=== PATIENT | female | born 1990 | race Caucasian/White ===

== ENCOUNTER 2016-06-06 23:29 | Emergency (ER) | payer MEDICARE, MEDICAID ==
[2016-06-06 23:36] VITALS: BP 117/78
[2016-06-07 00:55] LABS: APPEARANCE,URINE CLEAR; BILIRUBIN,URINE NEGATIVE (NEGATIVE); GLUCOSE, URINE NEGATIVE (NEGATIVE); KETONES,URINE NEGATIVE (NEGATIVE); LEUKOCYTE ESTERASE,URINE NEGATIVE (NEGATIVE); NITRITE,URINE NEGATIVE (NEGATIVE); PROTEIN,URINE NEGATIVE (NEGATIVE); URINE SPECIFIC GRAVITY 1.015; UROBILINOGEN,URINE NEGATIVE mg/dL (<2.0)
[2016-06-07] MEDS ORDERED: HYDROCODONE/ACETAMINOPHEN 5-325 MG 6 TAB/DSPK PO PRN (01:58)
--- NOTE | 2016-06-07 02:01 | ER Document Report ---
HPI - HPI Patient complains to provider of: lower back pain Pain Level: 4 Context: Patient is a 25-year-old female that comes emergency department for chief complaint of lower back pain, worse since yesterday, pain is in the sides of her back on either side of her spine, she denies radiation of the pain, numbness , injury, bowel incontinence or urinary retention. She denies fever. She states that she has had intermittent problems with lower back pain for a "long time". She states she has had sciatica in the past as well. She denies any daily medications other than [id number] medications which she states are not working. - REPRODUCTIVE Reproductive: DENIES: : - DERM Skin Color: Normal Past Medical History - General Information source: Patient - Social History Smoking Status: Never Smoker Chew tobacco use (# tins/day): No Frequency of alcohol use: None Drug Abuse: None Lives with: Family Family History: Arthritis, Hypertension, Malignancy Patient has suicidal ideation: No Patient has homicidal ideation: No - Past Medical History Cardiac Medical History: Denies: Hx Heart Attack, Hx Hypertension Pulmonary Medical History: Denies: Hx Asthma, Hx Bronchitis, Hx COPD, Hx Pneumonia Neurological Medical History: Denies: Hx Migraine, Hx Seizures Endocrine Medical History: Denies: Hx Diabetes Mellitus Type 2 Renal/ Medical History: Reports: Hx Kidney Stones. Denies: Hx Ectopic , Hx End Stage Renal Disease, Hx Hemodialysis, Hx Hydrocele, Hx Peritoneal Dialysis, Hx Pelvic Inflammatory Disease Malignancy Medical History: Denies: Hx Brain Cancer, Hx Breast Cancer, Hx Liver Cancer, Hx Lung Cancer, Hx Ovarian Cancer, Hx Renal (Kidney) Cancer GI Medical History: Denies: Hx Crohn's Disease, Hx Diverticulitis, Hx Gastritis , Hx Gastroesophageal Reflux Disease Musculoskeltal Medical History: Denies Hx Arthritis, Denies Hx Gout, Denies Hx Multiple Sclerosis, Denies Hx Muscular Dystrophy, Denies Hx Musculoskeletal Deformity Psychiatric Medical History: Reports: Hx Anxiety, Hx Depression - anxiety Denies: Hx Personality Disorder, Hx Post Traumatic Stress Disorder Past Surgical History: Reports: Hx Cholecystectomy, Hx Tubal Ligation - Immunizations Immunizations up to date: Yes Hx Diphtheria, Pertussis, Tetanus Vaccination: Yes - 01/2010 Vertical Provider Document - CONSTITUTIONAL General Appearance: WD/WN, No Apparent Distress - INFECTION CONTROL TRAVEL OUTSIDE OF THE [place] IN LAST 30 DAYS: No - HEENT HEENT: Atraumatic, Normal ENT Exam, Normocephalic - NECK Neck: Normal Inspection - RESPIRATORY Respiratory: Breath Sounds Normal, No Respiratory Distress O2 Sat by Pulse Oximetry: 98 - CARDIOVASCULAR Cardiovascular: Regular Rate, Regular Rhythm - GI/ABDOMEN Gastrointestinal: Abdomen Soft, Abdomen Non-Tender - BACK Back: negative: Normal Inspection - There is tenderness in the left lumbar paraspinal muscles on examination, no midline tenderness, no saddle anesthesia, normal upper and lower extremity range of motion, strength, and distal neurovascular exam - MUSCULOSKELETAL/EXTREMETIES Musculoskeletal/Extremeties: MAEW, FROM, Non-Tender - NEURO Level of Consciousness: Awake, Alert, Appropriate Motor/Sensory: No Motor Deficit, No Sensory Deficit - DERM Integumentary: Warm, Dry, No Rash Course - Re-evaluation Re-evalutation: Patient is actually very well-appearing, sitting easily in the bed, easily gets up and walks around, negative straight leg raise, no axial loading abnormalities , no neurological deficits on exam or reported. Mild muscle tenderness in the left lower lumbar paraspinal muscles, urinalysis is unremarkable, treating with muscle relaxers, discussed primary care follow-up and return precautions, patient states understanding and agreement. - Vital Signs Vital signs: Temp Pulse Resp BP Pulse Ox 97.5 F 88 16 117/78 98 06/06/16 23:33 06/06/16 23:33 06/06/16 23:33 06/06/16 23:33 06/06/16 23:33 - Laboratory Laboratory results interpreted by me: 06/07/16 00:04 Urine Blood SMALL H Discharge - Discharge Clinical Impression: Lower back pain Qualifiers: Chronicity: chronic Back pain laterality: bilateral Sciatica presence: without sciatica Qualified Code(s): M54.5 - Low back pain Condition: Stable Disposition: HOME, SELF-CARE Additional Instructions: By examination the source of your back pain appears to be muscular tightness and spasm. Take the muscle relaxer as directed, continue Tylenol or ibuprofen. Apply heat to the area, massage may help. Follow-up with primary care. Return to the emergency department for any concerning symptoms. Prescriptions: Cyclobenzaprine HCl [Flexeril 5 mg Tablet] 1 - 2 tab PO TID PRN #20 tablet PRN Reason:
== END 2016-06-07 02:30 | disposition home or self-care (01) ==
LOC: ER 23:29
DX: M54.5 Low back pain (principal); Z87.442 Personal history of urinary calculi
CPT/HCPCS: 99283; 81001; A9270

== ENCOUNTER 2016-09-06 07:11 | Emergency (ER) | payer MEDICARE, MEDICAID ==
[2016-09-06 07:25] VITALS: BP 112/85
--- NOTE | 2016-09-06 08:13 | ER Document Report ---
HPI - HPI Patient complains to provider of: back pain Context: Patient is a 25-year-old female who presents emergency department complaining of chronic back pain. Patient states that she has had issues with back pain for the past year and a half but she states it has been worse over the past 30 days. Patient states that she recently left her previous physician because her pain is not being appropriately managed. She now sees suite. Patient states that she has had an MRI to evaluate her back before but has never been diagnosed with any degenerative disc disease, impingement on the nerve, degenerative disease. Patient states in the past that she has taken naproxen, Motrin, Mobic, Toradol. She states that none of these medications never worked for her and she will not be sent home with them today. Patient states that currently from [place] states she has been taking Flexeril 5 mg tablets without any improvement in her symptoms. She states that she is occasionally been taking her mother's Vicodin which she states does help and she is able to sleep. Patient states that this is medication she will go home today. Denies any urinary/stool incontinence, saddle anesthesia. Patient able to ambulate. Past medical history significant for anxiety - REPRODUCTIVE Reproductive: DENIES: : Past Medical History - Social History Smoking Status: Current Every Day Smoker Family History: Arthritis, Hypertension, Malignancy - Past Medical History Cardiac Medical History: Denies: Hx Heart Attack, Hx Hypertension Pulmonary Medical History: Denies: Hx Asthma, Hx Bronchitis, Hx COPD, Hx Pneumonia Neurological Medical History: Denies: Hx Migraine, Hx Seizures Endocrine Medical History: Denies: Hx Diabetes Mellitus Type 2 Renal/ Medical History: Reports: Hx Kidney Stones. Denies: Hx Ectopic , Hx End Stage Renal Disease, Hx Hemodialysis, Hx Hydrocele, Hx Peritoneal Dialysis, Hx Pelvic Inflammatory Disease Malignancy Medical History: Denies: Hx Brain Cancer, Hx Breast Cancer, Hx Liver Cancer, Hx Lung Cancer, Hx Ovarian Cancer, Hx Renal (Kidney) Cancer GI Medical History: Denies: Hx Crohn's Disease, Hx Diverticulitis, Hx Gastritis , Hx Gastroesophageal Reflux Disease Musculoskeltal Medical History: Denies Hx Arthritis, Denies Hx Gout, Denies Hx Multiple Sclerosis, Denies Hx Muscular Dystrophy, Denies Hx Musculoskeletal Deformity Psychiatric Medical History: Reports: Hx Anxiety, Hx Depression - anxiety Denies: Hx Personality Disorder, Hx Post Traumatic Stress Disorder Past Surgical History: Reports: Hx Cholecystectomy, Hx Tubal Ligation - Immunizations Immunizations up to date: Yes Hx Diphtheria, Pertussis, Tetanus Vaccination: Yes - 01/2010 Vertical Provider Document - CONSTITUTIONAL Agree With Documented VS: Yes Exam Limitations: No Limitations General Appearance: WD/WN, No Apparent Distress Notes: PHYSICAL EXAM GENERAL: Alert, interacts well. HEAD: Normocephalic, atraumatic. LUNGS: Clear to auscultation bilaterally, no wheezes, rales, or rhonchi. No respiratory distress. HEART: Regular rate and rhythm. No murmurs, gallops, or rubs. EXTREMITIES: Moves all 4 extremities spontaneously. No edema, radial and dorsalis pedis pulses 2/4 bilaterally. No cyanosis. BACK: paraspinal muscle tenderness and muscle tension along thoracic and lumber spine worse on the right. No evidence of spinous process tenderness, deformities , step offs, ecchymosis. Gait stable. Sensation and motor function intact, no evidence of numbness, weakness of b/l lower extremities NEUROLOGICAL: Alert and oriented x4. Normal speech. PSYCH: Normal affect, normal mood. SKIN: Warm, dry, normal turgor. No rashes or lesions noted. - INFECTION CONTROL TRAVEL OUTSIDE OF THE [place] IN LAST 30 DAYS: No - RESPIRATORY O2 Sat by Pulse Oximetry: 100 Course - Re-evaluation Re-evalutation: 09/06/16 10:54 The patient presents with low back pain without signs of spinal cord compression , cauda equina syndrome, infection, aneurysm, or other serious etiology. The patient is neurologically intact. Given the extremely low risk of these diagnoses further testing and evaluation for these possibilities does not appear to be indicated at this time. The patient has been instructed to return if the symptoms worsen or change in any way. Discussed with patient the department policy on chronic pain. With her that she will need to follow-up with her primary care physician regarding chronic narcotic prescriptions. Patient expresses understanding Per [facility] protocol and guidelines, this case was discussed with supervising physician Dr. Jolie Moreira prior to discharge - Vital Signs Vital signs: Temp Pulse Resp BP Pulse Ox 98.1 F 101 H 14 112/85 100 09/06/16 07:24 09/06/16 07:24 09/06/16 07:24 09/06/16 07:24 09/06/16 07:24 Discharge - Discharge Clinical Impression: Low back pain Condition: Good Disposition: HOME, SELF-CARE Additional Instructions: LOW BACK PAIN: Three out of every four people will have an episode of disabling back pain during their lifetime. Most commonly the pain is due to straining of the muscles and ligaments in the low back. Usual treatment includes: (1) Rest on a firm surface. Avoid lying on your stomach. (2) Ice pack the painful area. After a few days, gentle heat may be used intermittently to relax the area, or ice packs can be continued. (3) Medication may be needed -- muscle relaxers and antiinflammatory medicines are commonly used. (4) As the back improves, exercises are prescribed to strengthen the back and abdominal muscles. Your doctor will advise you on the proper care for your back at each stage in your recovery. You may be better in a few days -- or healing may take several weeks. If new symptoms of a "herniated disc" (radiation of pain, numbness, or tingling down the back of the leg or weakness in the leg) occur, you should be re-examined. Further testing may be necessary. ICE PACKS: Apply ice packs frequently against the painful area. Many different schedules are recommended, such as "20 minutes on, 20 minutes off" or "one hour ice, two hours rest." If you need to work, you may need to go longer between ice treatments. You should plan to have the area ice packed AT LEAST one fourth of the time. The ice should be applied over the wrap, tape, or splint, or over a layer of cloth -- not directly against the skin. Some ice bags have a built-in cloth and can be put directly on the skin. WARM PACKS: After approximately two days, apply gentle heat (such as a heating pad or hot water bottle) for about 20 to 30 minutes about every two hours -- at least four times daily. Warmth and elevation will help you make a more rapid recovery , and will ease the pain considerably. Do not use HOT heat, and never apply heat for longer than 30 minutes. The continuous heat can invisibly damage skin and muscles -- even when no burn is seen on the surface. Damaged muscles can make you MORE sore. FOLLOW-UP CARE: If you have been referred to a physician for follow-up care, call the physician s office for an appointment as you were instructed or within the next two days. If you experience worsening or a significant change in your symptoms, notify the physician immediately or return to the Emergency Department at any time for re-evaluation. Forms: Return to Work Referrals: RASHAD BERNAL PA-C [NO LOCAL MD] - Follow up tomorrow
== END 2016-09-06 08:21 | disposition home or self-care (01) ==
LOC: ER 07:11
DX: M54.5 Low back pain (principal); M54.9 Dorsalgia, unspecified; G89.29 Other chronic pain; Z79.899 Other long term (current) drug therapy; F17.200 Nicotine dependence, unspecified, uncomplicated
CPT/HCPCS: 99283

== ENCOUNTER → 2018-01-13 | Outpatient (CLI) | payer MEDICARE, MEDICAID ==
[2018-01-13 13:17] LABS: T.VAGINALIS (WET MOUNT) NO TRICHOMONAS SEEN; WBCS (WET MOUNT) 1+ WBCS SEEN; YEAST (WET MOUNT) NO YEAST SEEN
[2018-01-13 13:18] LABS: BACTERIA (WET MOUNT) 4+ BACTERIA SEEN; EPITHELIALS (WET MOUNT) 4+ EPITHELIALS SEEN; RBCS (WET MOUNT) RARE RBCS SEEN
[2018-01-13 14:50] LABS: CHLAM PCR NOT DETECTED (NOT DETECT); GON PCR NOT DETECTED (NOT DETECT)
== END ==
LOC: LAB 13:03
PROVIDERS: ATTEND Nurse Practitioner Family
DX: N76.0 Acute vaginitis (principal); R30.0 Dysuria
CPT/HCPCS: 87086; 87210; 87491; 87591

== ENCOUNTER 2018-02-19 20:33 | Emergency (ER) | payer MEDICARE, MEDICAID ==
--- NOTE | 2018-02-19 21:09 | EKG REPORT ---
SEVERITY:- NORMAL ECG - SINUS RHYTHM : Confirmed by: Kelechi Arechiga MD 19-Feb-2018 21:08:53
[2018-02-19 21:59] LABS: HEMOGLOBIN 12.7 g/dL (12.0-15.5); MEAN CORPUSCULAR HEMOGLOBIN 29.5 pg (27.0-33.4); MEAN CORPUSCULAR HGB CONC 34.4 g/dL (32.0-36.0); MEAN CORPUSCULAR VOLUME 86 fl (80-97); PLATELET COUNT 315 10^3/uL (150-450); RED BLOOD COUNT 4.31 10^6/uL (3.72-5.28); RED CELL DISTRIBUTION WIDTH 13.2 % (11.5-14.0); WHITE BLOOD COUNT 8.3 10^3/uL (4.0-10.5)
--- NOTE | 2018-02-19 22:15 | RADIOLOGY REPORT (SQ) ---
EXAM DESCRIPTION: XR CHEST 1 VIEW COMPLETED DATE/TME: 02/19/2018 21:46 CLINICAL HISTORY: 27 years, Female, cp Findings: Heart is not enlarged. Lungs are clear. No pneumothorax. No pleural effusion. IMPRESSION: No acute disease.
[2018-02-19 22:18] LABS: ANION GAP 11 (5-19); BLOOD UREA NITROGEN 9 mg/dL (7-20); CALCIUM 9.2 mg/dL (8.4-10.2); CARBON DIOXIDE 28 mmol/L (22-30); CHLORIDE 101 mmol/L (98-107); GLUCOSE 93 mg/dL (75-110); POTASSIUM 4.1 mmol/L (3.6-5.0)
[2018-02-19 22:37] LABS: APPEARANCE,URINE SLIGHTLY-CLOUDY; BILIRUBIN,URINE NEGATIVE (NEGATIVE); COLOR,URINE AMBER; GLUCOSE, URINE NEGATIVE (NEGATIVE); KETONES,URINE NEGATIVE (NEGATIVE); LEUKOCYTE ESTERASE,URINE NEGATIVE (NEGATIVE); NITRITE,URINE POSITIVE (NEGATIVE); PROTEIN,URINE 100 mg/dL (NEGATIVE); URINE SPECIFIC GRAVITY 1.025
[2018-02-19] MEDS ORDERED: CEPHALEXIN 500 MG CAPSULE PO ONE (23:20)
--- NOTE | 2018-02-19 23:20 | ER Document Report ---
ED General - General Chief Complaint: Chest Pain Stated Complaint: SWOLLEN LEGS/FEET Time Seen by Provider: 02/19/18 21:45 Notes: Patient is a 27-year-old female with a past medical history of Suboxone dependency, depression, anxiety, who presents with a multitude of complaints. The patient's first complaint is that she has had intermittent chest discomfort with passive Dk that has been constant over the last 12 hours. Describes a stabbing, aching discomfort on the right side of the chest. Nothing improves or worsens his pain. No pleuritic pain. No dyspnea. No use of estrogen. No history of DVT or pulmonary embolus. She also complains of bilateral lower extremity swelling that has been present for the past several weeks. States it fluctuates throughout the day, worse with standing. She also complains of difficulty sleeping at night she is falling asleep during the day. She denies fever or constitutional symptoms. No nausea, vomiting, diarrhea or abdominal pain. She has not seen her general doctor regarding the above concerns. TRAVEL OUTSIDE OF THE [place] IN LAST 30 DAYS: No - Related Data Allergies/Adverse Reactions: metronidazole [From Flagyl] Allergy (Verified 09/06/16 07:19) Metronidazole HCl [From Flagyl] Allergy (Verified 09/06/16 07:19) morphine [Morphine] Allergy (Verified 09/06/16 07:19) Past Medical History - General Information source: Patient - Social History Smoking Status: Never Smoker Frequency of alcohol use: None Drug Abuse: None Lives with: Parents Family History: Arthritis, Hypertension, Malignancy - Past Medical History Cardiac Medical History: Denies: Hx Heart Attack, Hx Hypertension Pulmonary Medical History: Denies: Hx Asthma, Hx Bronchitis, Hx COPD, Hx Pneumonia Neurological Medical History: Denies: Hx Migraine, Hx Seizures Endocrine Medical History: Denies: Hx Diabetes Mellitus Type 2 Renal/ Medical History: Reports: Hx Kidney Stones. Denies: Hx Ectopic , Hx End Stage Renal Disease, Hx Hemodialysis, Hx Hydrocele, Hx Peritoneal Dialysis, Hx Pelvic Inflammatory Disease Malignancy Medical History: Denies: Hx Brain Cancer, Hx Breast Cancer, Hx Liver Cancer, Hx Lung Cancer, Hx Ovarian Cancer, Hx Renal (Kidney) Cancer GI Medical History: Denies: Hx Crohn's Disease, Hx Diverticulitis, Hx Gastritis , Hx Gastroesophageal Reflux Disease Musculoskeletal Medical History: Denies Hx Arthritis, Denies Hx Gout, Denies Hx Multiple Sclerosis, Denies Hx Muscular Dystrophy, Denies Hx Musculoskeletal Deformity Psychiatric Medical History: Reports: Hx Anxiety, Hx Depression - anxiety Denies: Hx Personality Disorder, Hx Post Traumatic Stress Disorder Past Surgical History: Reports: Hx Cholecystectomy, Hx Tubal Ligation - Immunizations Immunizations up to date: Yes Hx Diphtheria, Pertussis, Tetanus Vaccination: Yes - 01/2010 Review of Systems - Review of Systems Notes: Constitutional: Negative for fever. HENT: Negative for sore throat. Eyes: Negative for visual changes. Cardiovascular: Positive for chest pain. Respiratory: Negative for shortness of breath. Gastrointestinal: Negative for abdominal pain, vomiting or diarrhea. Genitourinary: Negative for dysuria. Musculoskeletal: Positive for bilateral lower extremity edema Skin: Negative for rash. Neurological: Negative for headaches, weakness or numbness. 10 point ROS negative except as marked above and in HPI. Physical Exam - Vital signs Vitals: Temp Pulse Resp BP Pulse Ox 97.7 F 62 16 113/66 100 02/19/18 21:33 02/19/18 21:33 02/19/18 21:33 02/19/18 21:33 02/19/18 21:33 Interpretation: Normal Notes: PHYSICAL EXAMINATION: GENERAL: Well-appearing, well-nourished and in no acute distress. HEAD: Atraumatic, normocephalic. EYES: Pupils equal round and reactive to light, extraocular movements intact, sclera anicteric, conjunctiva are normal. ENT: nares patent, oropharynx clear without exudates. Moist mucous membranes. NECK: Normal range of motion, supple without lymphadenopathy LUNGS: Breath sounds clear to auscultation bilaterally and equal. No wheezes rales or rhonchi. HEART: Regular rate and rhythm without murmurs ABDOMEN: Soft, nontender, normoactive bowel sounds. No guarding, no rebound. No masses appreciated. EXTREMITIES: Normal range of motion, trace edema in the bilateral lower extremities that is equal and symmetric. No cyanosis. NEUROLOGICAL: No focal neurological deficits. Moves all extremities spontaneously and on command. PSYCH: Normal mood, normal affect. SKIN: Warm, Dry, normal turgor, no rashes or lesions noted. Course - Re-evaluation Re-evalutation: 02/19/18 23:14 Patient presents with a multitude of complaints 1.) Chest discomfort: Presentation of chest pain in an otherwise well appearing patient. Low clinical suspicion for ACS given clinical history, exam, EKG without ST elevations or depressions, and negative initial troponin. HEART score less than or equal to 3. PE also seems unlikely given clinical history, absence of tachycardia or dyspnea. Patient is PERC criteria negative. CXR without evidence of pneumothorax or pneumonia. No widened mediastinum. Aortic dissection also seems unlikely given history, symmetric pulses, CXR, and vitals. Pain has been ongoing for several days and I do not see an indication for serial cardiac markers as this appears to be very low risk for acute cardiac etiology. 2.) Dysuria: Urinalysis specimen is contaminated but does appear consistent with a UTI particular given the patient's symptoms of dysuria. No history of fever, flank pain, or constitution symptoms to suggest ascending infection at this time. Patient is well in appearance, tolerating oral intake without difficulty. No focal abdominal tenderness to suggest acute appendicitis, biliary pathology, acute pancreatitis, tubo-ovarian abscesses, or pelvic inflammatory disease. Patient will be started on antibiotics at this time. A culture has been sent. 3.) Bilateral lower extremity edema: Seems can most consistent with obesity based venous stasis. Swelling is equal and symmetric, do not clinically suspect an acute DVT. No stigmata of CHF. Renal functions within normal limits. Patient has been placed in compression stockings and weight loss has been advised. 4.) Falling asleep in the middle of the day: Patient has very poor sleep hygiene, sleeping less than 6 hours a night. We have reviewed appropriate sleep hygiene. At this time will discharge with return precautions and follow-up recommendations. Verbal discharge instructions given a the bedside and opportunity for questions given. Medication warnings reviewed. Patient is in agreement with this plan and has verbalized understanding of return precautions and the need for primary care follow-up in the next 24-72 hours. 02/19/18 23:16 - Vital Signs Vital signs: Temp Pulse Resp BP Pulse Ox 97.5 F 65 16 111/72 97 02/20/18 00:00 02/20/18 00:00 02/19/18 21:33 02/20/18 00:00 02/20/18 00:00 - Laboratory Result Diagrams: 02/19/18 21:45 02/19/18 21:45 Laboratory results interpreted by me: 02/19/18 22:10 Urine Protein 100 H Urine Nitrite POSITIVE H Urine Urobilinogen 4.0 H - Diagnostic Test Radiology reviewed: Image reviewed, Reports reviewed Radiology results interpreted by me: 02/19/18 23:17 Chest x-ray: No acute infiltrate or pneumothorax - EKG Interpretation by Me Additional EKG results interpreted by me: 02/19/18 23:17 Sinus rhythm. Rate 70. No ST elevations or depressions. QTC 444. Discharge - Discharge Clinical Impression: Chest wall pain, Lower extremity edema Insomnia Qualifiers: Insomnia type: unspecified Qualified Code(s): G47.00 - Insomnia, unspecified Urinary tract infection Qualifiers: Urinary tract infection type: acute cystitis Hematuria presence: without hematuria Qualified Code(s): N30.00 - Acute cystitis without hematuria Condition: Good Disposition: HOME, SELF-CARE Additional Instructions: Leg swelling Please wear compression stockings on both your legs throughout the day to help reduce the swelling in your legs. As we discussed, focus on weight loss gradually over the next several years to reduce the need to continue to wear compression stockings and to have an overall healthier life. This will also help prevent worsening complications from your weight. Return if you develop worsening pain on one side, fever greater than 101F, vomiting, weakness, numbness or any other symptoms that are concerning to you. Chest pain You were seen today for chest pain. The exact cause of your pain is unclear. However, based on your cardiac enzyme testing, chest x-ray, and EKG it does not appear that it is from an immediately life-threatening cause at this time. Please return to emergency department immediately if you have worsening of your chest pain, shortness of breath, vomiting, become unable to exert yourself due to pain or difficulty breathing, you pass out, or have any pain that radiates into your arms, jaw, or back. Please also return if you have any additional symptoms that are concerning to you. Urine infection Your urine shows findings consistent with a urinary tract infection. Please take all the antibiotics as directed even if your symptoms have improved. Please follow-up with your primary care physician as needed. Return to emergency room if you develop fever >101F, persistent vomiting, become lethargic , have severe pain in your sides, or any other symptoms that are concerning to you. Prescriptions: Cephalexin Monohydrate [Keflex 500 mg Capsule] 500 mg PO Q6H 5 Days capsule
[2018-02-20 00:03] VITALS: BP 111/72
[2018-02-20 02:27] LABS: CHLAM PCR NOT DETECTED (NOT DETECT); GON PCR NOT DETECTED (NOT DETECT)
== END 2018-02-20 00:42 | disposition home or self-care (01) ==
LOC: ER 20:33
DX: R07.89 Other chest pain (principal); R60.0 Localized edema; G47.00 Insomnia, unspecified; N30.00 Acute cystitis without hematuria; Z88.1 Allergy status to other antibiotic agents; Z88.5 Allergy status to narcotic agent
CPT/HCPCS: 93005; 99285; 36415; 87086; 84703; 85027; 87088; 80048; 81001; 84484; 87491; 87591; 71045; 93010; A9270; 87186

== ENCOUNTER → 2018-06-06 | Outpatient (CLI) | payer MEDICARE, MEDICAID ==
[2018-06-06 16:15] LABS: BACTERIA (WET MOUNT) 4+ BACTERIA SEEN; EPITHELIALS (WET MOUNT) 3+ EPITHELIALS SEEN; RBCS (WET MOUNT) 4+ RBCS SEEN; T.VAGINALIS (WET MOUNT) NO TRICHOMONAS SEEN; WBCS (WET MOUNT) 1+ WBCS SEEN; YEAST (WET MOUNT) NO YEAST SEEN
[2018-06-06 17:06] LABS: CHLAM PCR NOT DETECTED (NOT DETECT); GON PCR NOT DETECTED (NOT DETECT)
== END ==
LOC: LAB 15:26
PROVIDERS: ATTEND Nurse Practitioner Acute Care
DX: N89.8 Other specified noninflammatory disorders of vagina (principal); R30.0 Dysuria
CPT/HCPCS: 87210; 87491; 87591

== ENCOUNTER → 2019-01-05 | Outpatient (CLI) | payer MEDICARE, MEDICAID ==
[2019-01-05 17:04] LABS: APPEARANCE,URINE CLOUDY; BILIRUBIN,URINE NEGATIVE (NEGATIVE); COLOR,URINE DARK YELLOW; GLUCOSE, URINE NEGATIVE (NEGATIVE); KETONES,URINE NEGATIVE (NEGATIVE); LEUKOCYTE ESTERASE,URINE SMALL (NEGATIVE); NITRITE,URINE NEGATIVE (NEGATIVE); PROTEIN,URINE 100 mg/dL (NEGATIVE); UROBILINOGEN,URINE NEGATIVE mg/dL (<2.0)
--- NOTE | 2019-01-05 17:19 | RADIOLOGY REPORT (SQ) ---
EXAM DESCRIPTION: KUB/ABDOMEN (SINGLE VIEW) COMPLETED DATE/TIME: 01/05/2019 5:04 pm REASON FOR STUDY: K59.00 CONSTIPATION R10.9 UNSPECIFIED ABDOMINAL PAIN R10.9 UNSPECIFIED ABDOMINAL PAIN COMPARISON: None. NUMBER OF VIEWS: One view. TECHNIQUE: Supine radiographic image of the abdomen acquired. LIMITATIONS: None. FINDINGS: BOWEL GAS PATTERN: Normal bowel gas pattern. No dilated loops. Prominent stool throughout the colon. CALCIFICATIONS: No suspicious calcifications. SOFT TISSUES: No gross mass or suggestion of organomegaly. HARDWARE: Clips. BONES: No acute fracture. No worrisome bone lesions. OTHER: No other significant finding. IMPRESSION: NO RADIOGRAPHIC EVIDENCE FOR ACUTE ABDOMINAL DISEASE. PROMINENT STOOL THROUGHOUT THE CO FERMIN CONSISTENT WITH CONSTIPATION. TECHNICAL DOCUMENTATION: JOB ID: [id number] [employer]- All Rights Reserved Reading location - IP/workstation name: [email or web address] SUPPORT [email or web address]
== END ==
LOC: RAD 16:48
PROVIDERS: ATTEND Nurse Practitioner Family
DX: K59.00 Constipation, unspecified (principal); R10.9 Unspecified abdominal pain
CPT/HCPCS: 74018; 81001; 87086

== ENCOUNTER → 2019-01-17 | Outpatient (CLI) | payer MEDICARE, MEDICAID ==
[2019-01-17 15:15] LABS: BACTERIA (WET MOUNT) 4+ BACTERIA SEEN; EPITHELIALS (WET MOUNT) 4+ EPITHELIALS SEEN; T.VAGINALIS (WET MOUNT) NO TRICHOMONAS SEEN; WBCS (WET MOUNT) 2+ WBCS SEEN; YEAST (WET MOUNT) NO YEAST SEEN
[2019-01-17 16:43] LABS: CHLAM PCR NOT DETECTED (NOT DETECT)
== END ==
LOC: LAB 15:01
PROVIDERS: ATTEND Nurse Practitioner Family
DX: N89.8 Other specified noninflammatory disorders of vagina (principal)
CPT/HCPCS: 87210; 87491; 87591

== ENCOUNTER → 2019-09-13 | Outpatient (CLI) | payer MEDICARE, MEDICAID ==
[2019-09-13 16:00] LABS: FREE T4 (FREE THYROXINE) 0.88 ng/dL (0.78-2.19)
[2019-09-13 16:14] LABS: THYROID STIMULATING HORMONE 2.64 uIU/mL (0.47-4.68)
== END ==
LOC: OD 14:23
PROVIDERS: ATTEND Psychiatry & Neurology Psychiatry
DX: F41.1 Generalized anxiety disorder (principal)
CPT/HCPCS: 36415; 84439; 84443

== ENCOUNTER 2020-02-06 11:03 | Day surgery (SDC) | payer MEDICARE, MEDICAID ==
[~2020-02-06 11:03] MED LIST: AMPICILLIN SODIUM 2 GM in NORMAL SALINE 100 ML IV PRN
[2020-02-06] MEDS ORDERED: ONDANSETRON HCL INJ/PF 4 MG/2 ML SDV ONE (13:26)
[2020-02-06] MEDS ORDERED: MIDAZOLAM 2 MG/2 ML INJ ONE (13:26)
[2020-02-06] MEDS ORDERED: SUCCINYLCHOLINE CHLORIDE INJ 200 MG/10 ML VIAL ONE (13:27)
[2020-02-06] MEDS ORDERED: DEXAMETHASONE SOD PHOSPHATE INJ 4 MG/1 ML VIAL ONE (13:27)
[2020-02-06] MEDS ORDERED: FENTANYL CITRATE INJ/PF 100 MCG/2 ML AMPUL ONE ×2 (13:27→14:43)
[2020-02-06] MEDS ORDERED: PROPOFOL INJ 200 MG/20 ML VIAL IV ONE (13:27)
[2020-02-06] MEDS ORDERED: OXYMETAZOLINE HCL 0.05% NASAL SPRAY 15 ML BOTTLE ONE (13:45)
--- NOTE | 2020-02-06 14:46 | Operative Report ---
Operative Report-[facility] Operative Report: Date: 06 February 2020 History: 29-year-old female with a history of chronic tonsillitis and recurrent tonsillitis. Presents today for tonsillectomy. Informed consent was obtained from the patient. Pre-operative diagnosis: 1. Chronic Tonsillitis 2. Recurrent tonsillitis Post operative diagnosis: Same as above Procedure: Tonsillectomy Surgeon: Homer Núñez MD, FACS, [facility] Anesthesia: General via Endotrachreal intubation Procedure: After receiving informed consent, the patient was brought to the operating room and placed supine on the operating table. After successful induction and intubation by anesthesia the patient was turned 90 degrees and placed in Trendelenburg. A shoulder roll was placed along with a head drape. A McIvor mouth gag was inserted atraumatically into the oral cavity and opened up. The soft palate was palpated and found to be normal. Red rubber catheters were inserted down each nasal cavity and brought out to elevate the soft palate. Attention was then directed to the tonsils. The right tonsil was grasped with tenaculum and retracted medially. Using Bovie electrocautery the right tonsil was dissected free from its tonsillar fossa . Hemostasis was obtained using suction Bovie electrocautery. A similar procedure was performed on the left side. Both tonsils were removed. The tonsils were 2+. The oral pharynx and the oral cavity were irrigated with copious amounts of normal saline, without evidence of bleeding. An orogastric tube was inserted into the stomach to aspirate gastric contents. The McIvor mouthgag was then released and reopened, the surgical bed was dry without evidence of bleeding. The McIvor mouth gag along with the red catheters were removed from the patient. The patient was then returned back to anesthesia who successfully extubated the patient. Estimated blood loss: 20 mL Fluids: 500 mL The patient was then transported to the Post Anesthesia Care Unit in stable condition with spontaneous respiration. No complication.
[2020-02-06] MEDS ORDERED: HYDROMORPHONE HCL INJ/PF 2 MG/ML AMPULE ONE (15:03)
[2020-02-06] MEDS ORDERED: LORAZEPAM INJ 2 MG/1 ML VIAL ONE (15:03)
== END 2020-02-06 15:50 ==
LOC: SC 11:03
PROVIDERS: ATTEND Otolaryngology
DX: J35.8 Other chronic diseases of tonsils and adenoids (principal); J35.01 Chronic tonsillitis; K21.9 Gastro-esophageal reflux disease without esophagitis; F11.21 Opioid dependence, in remission; Z03.818 Encounter for observation for suspected exposure to other biological agents ruled out; E66.9 Obesity, unspecified
CPT/HCPCS: 42826; U0003; J0290; J2250; J1100; J3010; J1170; A9270; J2060; J0330; J2405; J7050; J2704; C9803; 87635; 88304; J3490